=== PATIENT | male | born 1935 | race American Indian/Alaskan Native ===

== ENCOUNTER 2022-02-16 18:35 | Emergency (ER) | payer OTHER ==
[2022-02-16] MEDS ORDERED: MORPHINE 4 MG/1 ML INJ IM ONE (20:51)
--- NOTE | 2022-02-16 21:02 | Emergency Department Report ---
ED Back Pain/Injury HPI - General Chief Complaint: Back Pain/Injury Stated Complaint: BACK PAIN Time Seen by Provider: 02/16/22 20:42 Source: patient, EMS Limitations: Physical Limitation - History of Present Illness Initial Comments: 86-year-old male presents to the ER with complaints of left hip pain and low back pain after experiencing a fall while doing yard work on Sunday. Patient was seen and treated at [facility] the day of injury and sent home with oral pain medication. Patient reports since his visit pain has increased as well as he reports a decrease in walking. Patient reports no other acute symptoms. Patient denies numbness and tingling in legs and feet patient denies no bowel or bladder changes. - Related Data Previous Rx's Medication Instructions Recorded Last Taken Type Tizanidine HCl 2 mg PO Q8HR PRN 4 Days #12 tab 02/16/22 Unknown Rx oxyCODONE /ACETAMINOPHEN [Percocet 1 tab PO Q6HR PRN 3 Days #12 tablet 02/16/22 Unknown Rx 5/325] Allergies Allergy/AdvReac Type Severity Reaction Status Date / Time No Known Allergies Allergy Unverified 02/16/22 20:03 ED Review of Systems ROS: Stated complaint: BACK PAIN Other details as noted in HPI Comment: All other systems reviewed and negative Musculoskeletal: back pain, other (Left-sided hip pain) ED Past Medical Hx - Past Medical History Previous Medical History?: Yes Hx Hypertension: Yes - Medications Home Medications: Home Medications Medication Instructions Recorded Confirmed Last Taken Type Tizanidine HCl 2 mg PO Q8HR PRN 4 Days #12 tab 02/16/22 Unknown Rx oxyCODONE /ACETAMINOPHEN [Percocet 1 tab PO Q6HR PRN 3 Days #12 tablet 02/16/22 Unknown Rx 5/325] ED Physical Exam - General Limitations: Physical Limitation General appearance: alert, in no apparent distress - Head Head exam: Present: atraumatic, normocephalic - Eye Eye exam: Present: normal appearance - ENT ENT exam: Present: mucous membranes moist - Neck Neck exam: Present: normal inspection - Respiratory Respiratory exam: Present: normal lung sounds bilaterally. Absent: respiratory distress - Cardiovascular Cardiovascular Exam: Present: regular rate, normal rhythm. Absent: systolic murmur, diastolic murmur, rubs, gallop - GI/Abdominal GI/Abdominal exam: Present: soft, normal bowel sounds - Rectal Rectal exam: Present: deferred - Extremities Exam Extremities exam: Present: normal inspection - Back Exam Back exam: Present: normal inspection, tenderness, vertebral tenderness - Expanded Back Exam Expanded Back exam: Absent: saddle anesthesia Back exam: Negative Straight Leg Raising: Right, Left - Neurological Exam Neurological exam: Present: alert, oriented X3 - Psychiatric Psychiatric exam: Present: normal affect, normal mood - Skin Skin exam: Present: warm, dry, intact, normal color. Absent: rash ED Course Vital Signs 02/16/22 20:01 Temperature 97.6 F Pulse Rate 63 Respiratory 16 Rate Blood Pressure 160/90 [Left] O2 Sat by Pulse 99 Oximetry ED Medical Decision Making - Radiology Data lumbar - IMPRESSION: 1. There is milder compression fracture involving superior L2 vertebral body with acute characteristics as detailed above. There is no significant bony retropulsion. 2. There are multilevel disc bulges involving lumbar spine with spinal stenosis and foraminal narrowing particularly from L2-3 to L4-5 as detailed above. Pelvic - IMPRESSION: 1. No acute osseous abnormality. - Medical Decision Making 86-year-old male with past medical history of hypertension reported to the ER with complaints of low back pain and left hip pain. Patient reports falling backwards while patient is normal backwards. Patient states that he was able to get up but was slowly able to get up. Patient denies any numbness or tingling in legs and feet no head injury reported, no loss of bowel or bladder function. Patient was seen at [facility] and sent home on Tylenol 3 for pain control. Patient reports since the incident he has had worsening of pain and decrease in walking due to pain. On physical exam left hip tenderness noted lumbar tenderness is noted. Negative straight leg test. CT lumbar shows L2 vertebral compression fracture with 25% loss of height. CT of pelvisno acute process noted refer to imaging report for more detailed explanation of CT report. Patient received IV medication for pain control. Reached out to [facility]'s transfer line for for outpatient resources and follow-up due to their system being a [facility] patient Spoke with Dr. Lara, @1118pm current on-call [facility] hospitalist. She reports that if patient is unable to walk or have a hard time walking to have patient overnight for observation with MRI in the morning. If not patient can follow-up with PCP and have Surgery or IR follow-up with outpatient MRI. On reevaluation at 11:30 PM patient is more ambulatory after receiving IV pain medicine. Patient informed to contact his primary care provider to be referred to neurosurgery and to obtain an outpatient MRI if symptoms are to get worse. Patient informed to come back to the ER if symptoms acutely worsen. Patient agrees with plan of care and verbalizes understanding. Vital Signs 02/16/22 02/16/22 20:01 23:42 Temperature 97.6 F Pulse Rate 63 67 Respiratory 16 14 Rate Blood Pressure 160/90 163/91 [Left] O2 Sat by Pulse 99 99 Oximetry Critical care attestation.: If time is entered above; I have spent that time in minutes in the direct care of this critically ill patient, excluding procedure time. ED Disposition Clinical Impression: Left hip pain Lumbar compression fracture Qualifiers: Encounter type: initial encounter Lumbar vertebra fracture level: L2 Qualified Code(s): S32.020A - Wedge compression fracture of second lumbar vertebra, initial encounter for closed fracture Disposition: 01 HOME / SELF CARE / HOMELESS Is pt being admited?: No Condition: Stable Instructions: Spinal Compression Fracture, Lumbar Spine Fracture, Hip Pain, Joint Pain Prescriptions: oxyCODONE /ACETAMINOPHEN [Percocet 5/325] 1 tab PO Q6HR PRN 3 Days #12 tablet PRN Reason: Pain Tizanidine HCl 2 mg PO Q8HR PRN 4 Days #12 tab PRN Reason: Muscle Spasm Time of Disposition: 23:22
--- NOTE | 2022-02-16 21:38 | Cat Scan Report ---
CT lumbar spine wo con INDICATION / CLINICAL INFORMATION: 86 years Male; back pain from fall. TECHNIQUE: Axial CT images of the lumbar spine were obtained with sagittal and coronal reconstructions. All CT s cans at this location are performed using CT dose reduction for ALARA by means of automated exposure control. COMPARISON: None available. FINDINGS: POST-SURGICAL CHANGES: None. ALIGNMENT: There is slight curvature the lumbar spine, convex toward the right. There is no significa nt spondylolisthesis. VERTEBRAE: There is mild compression fracture involving superior L2 vertebral body with approximately 25% loss of height centrally at. There is associated fragmentation and lucency compatible with acute process. There is no significant bony retropulsion. The posterior elements appear intact. There are multilevel mild degenerative endplate changes involving remaining lumbar segments without c lear evidence of further a fracture. INTERVERTEBRAL DISCS: This broad-based disc protrusion and ligamentum flavum hypertrophy at L4-5 whic h appear to result in mild to moderate degree of spinal stenosis. There is associated mild calcificat ion involving disc protrusion at. There is mild from narrowing bilaterally. There is a broad-based right-sided disc bulge at L3-4 which effaces the right lateral recess with mil d degree of spinal stenosis. There is also moderate to right and mild left foraminal narrowing. The degenerative the changes at L2-3 appear to result in mild degree of spinal stenosis and foraminal narrowing at. The disc bulge at L1-2 slightly flattens the ventral thecal sac. PARASPINAL SOFT TISSUES: Findings appear most consistent with partially visualized large left renal c yst. ADDITIONAL FINDINGS: None. IMPRESSION: 1. There is milder compression fracture involving superior L2 vertebral body with acute characteristi cs as detailed above. There is no significant bony retropulsion. 2. There are multilevel disc bulges involving lumbar spine with spinal stenosis and foraminal narrowi ng particularly from L2-3 to L4-5 as detailed above. Signer Name: Da Falcon MD Signed: 02/16/2022 9:33 PM Workstation Name: [id number]
--- NOTE | 2022-02-16 21:40 | Cat Scan Report ---
CT PELVIS WITHOUT CONTRAST INDICATION / CLINICAL INFORMATION: pelvic pain from fall. TECHNIQUE: Axial CT images were obtained through the pelvis without contrast. All CT scans at this [facility] are performed using CT dose reduction for ALARA by means of automated exposure control. COMPARISON: None available. FINDINGS: BONES: No fracture. No osseous lesion. HIP JOINTS: Mild DJD of the bilateral hips. SACROILIAC JOINTS: No significant abnormality. SOFT TISSUES: No significant abnormality. LOWER LUMBAR SPINE: Please refer to concurrent lumbar spine CT. SOFT TISSUES WITHIN PELVIS: Left renal cyst. There is calcific atherosclerosis. ADDITIONAL FINDINGS: None. IMPRESSION: 1. No acute osseous abnormality. Signer Name: Radhames Godfrey DO Signed: 02/16/2022 9:36 PM Workstation Name: [id number]
[2022-02-16 23:43] VITALS: BP 163/91
== END 2022-02-16 23:43 | disposition home or self-care (01) ==
LOC: ED 18:35
DX: S32.000A Wedge compression fracture of unspecified lumbar vertebra, initial encounter for closed fracture (principal); M25.552 Pain in left hip; I10 Essential (primary) hypertension; X58.XXXA Exposure to other specified factors, initial encounter; Y93.89 Activity, other specified; Y92.89 Other specified places as the place of occurrence of the external cause; Y99.8 Other external cause status
CPT/HCPCS: 72131; 72192; 96372; 99284; J2270